=== PATIENT | female | born 1965 | race Caucasian/White ===

== ENCOUNTER → 2023-10-16 | Outpatient (CLI) | payer OTHER, SELFPAY ==
--- NOTE | 2023-10-16 07:35 | MRI_ITS ---
STUDY: MRI LEFT MIDFOOT REASON FOR EXAM: Female, 58 years old. METATARSALGIA TECHNIQUE: Standardized fat and water weighted pulse sequences were obtained in all 3 orthogonal planes. COMPARISON: Left foot radiographs dated 08/13/2023. FINDINGS: Normal talonavicular articulation. Normal calcaneocuboid articulation. Normal navicular-cuneiform articulations. Normal intercuneiform articulations. Normal first tarsometatarsal articulation. Normal Lisfranc ligament. Normal second and third tarsometatarsal articulations. Normal cuboid fourth and cuboid fifth tarsometatarsal articulation. There is mild marrow stress edema in the proximal fourth and fifth metatarsals. Normal first through third metatarsi. There is no demonstrated fracture of the metatarsal bones. Normal tibialis anterior tendon. Normal extensor hallucis longus tendon. Normal extensor digitorum longus tendons. Normal peroneus longus tendon and distal insertion. Normal peroneus brevis tendon and distal insertion. Normal intrinsic muscles of the mid and forefoot region. Normal extensor digitorum brevis muscle. Normal subcutis adipose space. There is no demonstrated soft tissue mass lesion. MRI/Lower Ext/No Jt/w/o IMPRESSION: Mild marrow stress edema in the proximal fourth and fifth metatarsals. No demonstrated fracture. Electronically Signed: Marko Simons MD at 9:34 EST ,
--- OUTSIDE RECORDS SUMMARY | 2023-10-16 07:47 | XMS RPT_ITS | CCD ---
Author Name Unknown Address [address] [place] [address] Organization [facility] Care Team Providers Care Line Fixer Name Role Phone Unavailable Primary Care Provider UnavailJesse Bahena Primary Care Provider [phone] Primary Care Unavailable JESSE GRIMES Attending Unavailable SELF, SELF Referring Unavailable Anthony Thomas MD, Robert Primary Care Provider Medications Current Medications Medication Drug Class(es) Dates Sig (Normalized) Sig (Original) acetaminophen 325 mg / HYDROcodone bitartrate 5 mg oral tablet (4 sources) Opioid Agonist Start: 09-17-2019 End: 09-24-2019 take 1-2 tablets by mouth every four hours as needed hydroCODone-aceta minophen 5-325 MG Tab tablet Indications: Post-op pain Take 1-2 tablets by mouth every 4 hours as needed for up to 7 days. 25 tablet 0 09/17/2019 Active Completed/Discontinued Medications Medication Drug Class(es) Dates Sig (Normalized) Sig (Original) 20 ml bupivacaine hydrochloride 5 mg/ml injection (1 source) Amide Local Anesthetic Start: 09-17-2019 End: 09-17-2019 bupivacaine (PF) (MARCAINE) 0.5 % injection 2 ml gentamicin 40 mg/ml injection (1 source) Start: 09-17-2019 End: 09-17-2019 gentamicin (GARAMYCIN) injection HERBAL PRODUCT (12 sources) End: 10-31-2022 take 2 capsules by mouth twice daily HERBAL PRODUCT Take 2 capsules by mouth 2 times daily. Alpha crs plus 0 10/31/2022 Discontinued Problems Problem Classification Problem Date Documented Date Episodic/Chronic Other connective tissue disease (2 sources) Trigger finger, right middle finger; Translations: [Trigger finger, right middle finger] Onset: 10-31-2022 Episodic Other connective tissue disease (1 source) Triggering of digit; Translations: [Trigger finger, right middle finger] Episodic Other nervous system disorders (1 source) Postoperative pain ; Translations: [Post-op pain] Episodic Other nervous system disorders (3 sources) Carpal tunnel syndrome of right wrist; Translations: [Carpal tunnel syndrome, right] Unclassified (1 source) Patient encounter status; Translations: [Encounter for screening mammogram for breast cancer] Results Test Name Value Interpretation Reference Range Facil ity Vital Signs Date Time Vital Sign Value Performing Clinician [facility] 10-31-2022 09:20-0400 Body height 162.6 cm Jesse Grimes MD Work Phone: [facility] 10-31-2022 09:20-0400 Body mass index (BMI) [Ratio] 37.01 kg/m2 Jesse Grimes MD Work Phone: [facility] 10-31-2022 09:20-0400 Body temperature 97.7 [degF] Jesse Grimes MD Work Phone: [facility] 10-31-2022 09:20-0400 Body weight 97.8 kg Jesse Grimes MD Work Phone: [facility] 10-01-2019 13:29-0500 BMI (Body Mass Index) 38.62 kg/m2 [facility] 10-01-2019 13:29-0500 Body Temperature 98.29 [degF] [facility] 10-01-2019 13:29-0500 Body weight 102.06 kg [facility] 10-01-2019 13:29-0500 Height 162.6 cm [facility] 09-17-2019 09:00-0500 BP Diastolic 81 mm[Hg] [facility] 09-17-2019 09:00-0500 BP Systolic 132 mm[Hg] [facility] 09-17-2019 09:00-0500 Pulse (Heart Rate) 83 /min [facility] 09-17-2019 09:00-0500 Pulse Oximetry 93 % [facility] 09-17-2019 09:00-0500 Respiratory Rate 18 /min [facility] 09-17-2019 08:32-0500 Body Temperature 97.7 [degF] [facility] 09-17-2019 07:00-0500 BMI (Body Mass Index) 38.62 kg/m2 [facility] 09-17-2019 07:00-0500 Body weight 102.06 kg [facility] 09-17-2019 07:00-0500 Height 162.6 cm [facility] 09-01-2019 10:15-0500 BMI (Body Mass Index) 38.64 kg/m2 [facility] 09-01-2019 10:15-0500 Body Temperature 98.49 [degF] [facility] 09-01-2019 10:15-0500 Body weight 102.1 kg [facility] 09-01-2019 10:15-0500 Height 162.6 cm [facility] 07-28-2019 09:47-0500 BMI (Body Mass Index) 38.62 kg/m2 [facility] 07-28-2019 09:47-0500 Body Temperature 97.7 [degF] [facility] 07-28-2019 09:47-0500 Body weight 102.06 kg [facility] 07-28-2019 09:47-0500 Height 162.6 cm [facility] Encounters Encounter Date Encounter Type Care Provider Facility Start: 10-31-2022 ambulatory JESSE ANTHONY [facility] Start: 10-31-2022 End: 10-31-2022 Office outpatient new 30 minutes Jesse Grimes MD Work Phone: [facility] Procedures Date Procedure Procedure Detail Performing Clinician Start: 10-31-2022 Injection 1 tendon sheath/ligament aponeurosis Jesse Grimes MD Work Phone: Start: 09-28-2019 Follow-up visit Start: 07-15-2019 [facility]: Plan of Treatment Date Care Activity Detail Author Start: 06-20-2023 Screening for malignant neoplasm of colon COLORECTAL CANCER SCREENING DISCUSSION [facility] Start: 01-02-2023 End: 01-02-2023 Patient encounter procedure 01/02/2023 Office Visit Orthopaedics Jesse Grimes MD [address] [facility] [place] [address] [facility] Start: 04-12-2022 Influenza vaccination INFLUENZA VACCINE (#1) [facility] Start: 01-13-2021 COVID-19 VACCINE (3 - Booster for Pfizer series) COVID-19 VACCINE (3 - Booster for Pfizer series) [facility] Start: 07-15-2020 Screening for malignant neoplasm of breast MAMMOGRAM SCREENING DISCUSSION [facility] Start: 07-15-2020 Screening mammography MAMMOGRAM SCREENING DISCUSSION [facility] Start: 10-01-2019 End: 10-01-2019 Office Visit 10/01/2019 Office Visit Orthopaedics Gerri Mcdaniels PA-C [address] [place] [address] [phone] [facility] Start: 09-17-2019 End: 09-17-2019 Procedure Pass [facility] Periop Immunizations Immunization Date Immunization Notes Care Provider [facility] 05-18-2021 influenza virus vaccine, unspecified formulation Jesse Grimes MD Work Phone: [facility] 10-25-2018 zoster vaccine, unspecified formulation Jesse Grimes MD Work Phone: [facility] Payers Date Payer Category Payer Unknown GENERIC PA[employer]OR [employer] xxxxxxxxxxx 2019-Present [id number] 2019 Unknown [id number] 2019 Unknown GENERIC PAYOR [employer] PLAN [id number] 2019-Present [phone] [address] [place] [address] [id number] 1965 Unknown [id number] Social History Date Type Detail [facility] Start: 1965 Sex Assigned At Not on file [employer] Start: 07-28-2019 End: 10-31-2022 Tobacco smoking status NHIS Never smoker [facility] Start: 09-08-2019 End: 10-31-2022 Alcohol intake Current drinker of alcohol (finding) [facility] Start: 10-31-2022 Tobacco use and exposure Smokeless tobacco non-user [facility] History of Present illness Narrative 10-31-2022 Sarahi Morgan LPN - 10/31/2022 9:15 AM EDTLjair Mcdaniels PA-C - 10/31/2022 9:15 AM EDT Note Date & Type Note Facility 10-31-2022 History of Present illness Narrative Subjective Chief Complaint Patient presents with Right Hand - Pain OPNP- R long trigger Review of Systems Constitutional: Negative for chills, fatigue and fever. Eyes: Negative for visual disturbance. Respiratory: Negative for shortness of breath. Cardiovascular: Negative for chest pain. Gastrointestinal: Negative for abdominal pain and blood in stool. Endocrine: Negative for polydipsia. Genitourinary: Negative for hematuria. Musculoskeletal: Positive for arthralgias. Negative for myalgias. Neurological: Negative for seizures. Hematological: Does not bruise/bleed easily. Psychiatric/Behavioral: Negative for dysphoric mood. Associated Order(s): UPPER EXTREMITY INJECTION: R long A1 Post-Procedure Diagnose(s): Trigger middle finger of right hand 10/31/22 Chief Complaint: Chief Complaint Patient presents with Right Hand - Pain OPNP- R long trigger HPI: Janki presents to the office today chief complaint of right long finger catching and locking for several months. She states it does not really lock at this point however she is not able get it to bend completely. She has tried natasha taping it. She has not had any other treatment. She is right-hand dominant. Past Medical History: Past Medical History: Diagnosis Date Arthritis GERD (gastroesophageal reflux disease) Hyperlipidemia ROGERIO (obstructive sleep apnea) Past Surgical History: Past Surgical History: Procedure Laterality Date DECOMPRESSION TRANSPOSITION MEDIAN NERVE Right 09/17/2019 Laterality: Right; Surgeon: Jesse Grimes MD; Location: [facility] RELEASE CARPAL TUNNEL Left 1985 SECTION 1985 ROS: Subjective Chief Complaint Patient presents with Right Hand - Pain OPNP- R long trigger Review of Systems Constitutional: Negative for chills, fatigue and fever. Eyes: Negative for visual disturbance. Respiratory: Negative for shortness of breath. Cardiovascular: Negative for chest pain. Gastrointestinal: Negative for abdominal pain and blood in stool. Endocrine: Negative for polydipsia. Genitourinary: Negative for hematuria. Musculoskeletal: Positive for arthralgias. Negative for myalgias. Neurological: Negative for seizures. Hematological: Does not bruise/bleed easily. Psychiatric/Behavioral: Negative for dysphoric mood. Physical Exam: Vitals: 10/31/22 0920 Temp: 97.7 degrees F (36.5 degrees C) TempSrc: Temporal Weight: 97.8 kg (215 lb 9.8 oz) Height: 1.626 m (5' 4 ) Awake, alert, and oriented x3 Extremity: on exam today she has tenderness over the A1 narcisa of the right long finger and active triggering of the finger in the office today. She is able make a composite fist. She has brisk cap refill and skin is warm and dry. Diagnostic Studies: none Assessment: right long trigger finger Plan: I have discussed the natural history and the treatment options with her. At this point she does desire steroid injection. Please see procedure note for further details. That was performed by Dr. Grimes. She can use ice, Tylenol anti-inflammatories as needed for pain. We will see her back in 2 months to see how she is progressing. If she is doing well she may call and cancel. Please note this dictation was done by myself, however the patient was discussed with and seen by Dr. Grimes who agrees with the above stated. UPPER EXTREMITY INJECTION: R long A1 Date/Time: 10/31/2022 9:15 AM Procedure Details: Procedure: tendon sheath / ligament injection Location: long finger - R long A1 Needle size: 25 G Approach: superolateral Medications administered: 40 mg methylPREDNISolone acetate 40 MG/ML Medication Verification: I have personally verified and performed the final check of the medication(s) used in this procedure prior to administration. The following items were included during the verification process for medication(s) administered: drug name, strength, volume, expiration, physical integrity and appearance of the medication(s). Patient tolerance: patient tolerated the procedure well with no immediate complications Comments Risk and Benefits were discussed with the patient and they wished to proceed. The procedure was performed aseptically and was tolerated by the patient. Preparation: Patient was prepped in the usual sterile fashion. The patient was prepped with alcohol. documented in this encounter [facility] Evaluation note Note Date & Type Note Facility documented in this encounter [facility] Summary Purpose Family History No Family History Records FoundNo Family History Records FoundNo Family History Records FoundNo Family History Records Found Advance Directives No Advanced Directives Records FoundNo Advanced Directives Records FoundNo Advanced Directives Records FoundNo Advanced Directives Records Found Reason for Referral Status Reason Specialty Diagnoses / Procedures Referred By Contact Referred To Contact Closed Mammography Diagnoses Encounter for screening mammogram for breast cancer Procedures MAMMO SCREENING WITH PATRICK BILATERAL Mammography-[facility] [id number] [facility] Mammography [address] [place] [address] Status Reason Specialty Diagnoses / Procedures Referred By Contact Referred To Contact New Request Physical Medicin e & Rehabilitation Diagnoses Carpal tunnel syndrome, right Jesse Grimes MD [address] [phone] Assessments Diagnosis Encounter for screening mammogram for breast cancer Diagnosis Carpal tunnel syndrome, right- Primary Carpal tunnel syndrome Diagnosis Carpal tunnel syndrome, right- Primary Carpal tunnel syndrome Diagnosis Post-op pain- Primary Other acute postoperative pain Diagnosis Carpal tunnel syndrome, right Carpal tunnel syndrome History of Present Illness * Jesse Grimes MD - 07/28/2019 9:15 AM EST 07/28/19 Chief Complaint Patient presents with Right Hand - Pain Hand Pain OPNP-numbness,tingling and pain x's 10yrs. HPI: Janki is here today in follow up of her right hand. She has numbness and tingling she has had for years, progressively worse now to the point where it bothers her daily. She is wearing a braceall the time. She works cleaning for a living. Past Medical History: Diagnosis Date Arthritis GERD (gastroesophageal reflux disease) Hyperlipidemia Past Surgical History: Procedure Laterality Date RELEASE CARPAL TUNNEL Left 1985 SECTION 1985 Current Outpatient Medications: atorvastatin 40 MG Tab tablet, atorvastatin 40 mg tablet, Disp: , Rfl: omeprazole [address] capsule, omeprazole 40 mg capsule,delayed release, Disp: , Rfl: No Known Allergies Social History Socioeconomic History Marital status: Spouse name: Not on file Number of children: Not on file Years of education: Not on file Highest education level: Not on file Occupational History Not on file Social Needs Financial resource strain: Not on file Food insecurity: Worry: Not on file Inability: Not on file Transportation needs: Medical: Not on file Non-medical: Not on file Tobacco Use Smoking status: Never Smoker Smokeless tobacco: Never Used Substance and Sexual Activity Alcohol use: Not on file Drug use: Not on file Sexual activity: Not on file Lifestyle Physical activity: Days per week: Not on file Minutes per session: Not on file Stress: Not on file Relationships Social connections: Talks on phone: Not on file Gets together: Not on file Attends christian service: Not on file Active member of club or organization: Not on file Attends meetings of clubs or organizations: Not on file Relationship status: Not on file Intimate partner violence: Fear of current or ex partner: Not on file Emotionally abused: Not on file Physically abused: Not on file Forced sexual activity: Not on file Other Topics Concern Not on file Social History Narrative Not on file Family History Problem Relation Age of Onset Myocardial Infarction Father Cancer- Other Sister Review of Systems Constitutional: Negative for chills, fatigue and fever. Eyes: Negative for visual disturbance. Respiratory: Negative for shortness of breath. Cardiovascular: Negative for chest pain. Gastrointestinal: Negative for abdominal pain and blood in stool. Endocrine: Negative for polydipsia. Genitourinary: Negative for hematuria. Musculoskeletal: Negative for arthralgias and myalgias. Neurological: Negative for seizures. Hematological: Does not bruise/bleed easily. Psychiatric/Behavioral: Negative for dysphoric mood. All other systems reviewed and are negative. Physical Examination: Vitals: 07/28/19 0947 Temp: 97.7 degrees F (36.5 degrees C) Weight: 102.1 kg (225 lb) Height: 1.626 m (5' 4 ) Extremity: Exam demonstrates positive Tinel's and Phalen's. 2-point discrimination is normal. No thenar atrophy. Skin is warm and dry. Assessment: 1. Clinically she has right carpal tunnel syndrome. Plan: We will set her up for a nerve study and see her back after that test is complete. We will goover the findings and discuss options at that point. * Nidhi Suazo - 07/28/2019 9:15 AM EST Review of Systems Constitutional: Negative for chills, fatigue and fever. Eyes: Negative for visual disturbance. Respiratory: Negative for shortness of breath. Cardiovascular: Negative for chest pain. Gastrointestinal: Negative for abdominal pain and blood in stool. Endocrine: Negative for polydipsia. Genitourinary: Negative for hematuria. Musculoskeletal: Negative for arthralgias and myalgias. Neurological: Negative for seizures. Hematological: Does not bruise/bleed easily. Psychiatric/Behavioral: Negative for dysphoric mood. All other systems reviewed and are negative. documented in this encounter* Nidhi Suazo - 09/01/2019 9:15 AM EST Review of Systems Constitutional: Negative for chills, fatigue and fever. Eyes: Negative for visual disturbance. Respiratory: Negative for shortness of breath. Cardiovascular: Negative for chest pain. Gastrointestinal: Negative for abdominal pain and blood in stool. Endocrine: Negative for polydipsia. Genitourinary: Negative for hematuria. Musculoskeletal: Positive for arthralgias. Negative for myalgias. Neurological: Negative for seizures. Hematological: Does not bruise/bleed easily. Psychiatric/Behavioral: Negative for dysphoric mood. documented in this encounter* Gerri Mcdaneils PA-C - 10/01/2019 1:30 PM EST 10/01/19 HPI: Janki Vasquez presents to the office today 2 weeks status post Right carpal tunnel release, doing well. She has not had complaints. Her numbness and tingling has resolved. PE: Right hand incision is clean and dry and healing well. She is able to make a composite fist. Brisk capillary refill. Skin is warm and dry. Two point Discrimination (mm): 1- Thumb 2- Index 3- Long 4- Ring 5- Small Right 7 7 7 7 7 Left N/a Assessment: S/P Right CTR. Plan: Sutures were removed in the office today. I discussed scar massage. There are no restrictions, she can progress activity as tolerated. Follow up on an as needed basis. * Christiane Landin - 10/01/2019 1:30 PM EST Review of Systems Constitutional: Negative for chills and fever. HENT: Negative for hearing loss. Eyes: Negative for visual disturbance. Respiratory: Negative for shortness of breath. Cardiovascular: Negative for chest pain. Gastrointestinal: Negative for abdominal pain and blood in stool. Endocrine: Negative for polydipsia. Genitourinary: Negative for hematuria. Musculoskeletal: Negative for arthralgias and myalgias. Neurological: Negative for dizziness, seizures and numbness. Hematological: Does not bruise/bleed easily. Psychiatric/Behavioral: Negative for dysphoric mood. documented in this encounter Discharge Instructions * Instructions* Justin Cameron RN - 09/17/2019 Janki Vasquez 09/17/2019 JESSE GRIMES M.D. HOME INSTRUCTIONS FOR OUTPATIENT HAND SURGERY: Following your surgery, you will have a dressing on your arm or hand. Depending on the type of surgery, it may be a soft gauze dressing, belinda bandage, cast or a combination of these. It is important to keep this dressing clean and dry, as it is meant to stay in place until you follow-up with the doctor or therapist. The surgeon may inform you or your family on the day of surgery if these instructions may be modified. In the setting of many small hand procedures, the wrap can be replaced with another type of bandage. If advised that it is ok, another wrap or even a waterproof band aide can be used over your incision. In all cases avoid getting the incision wet and observe it for any drainage that may appear. Your bandage should not be tight or rub you in a way that is problematic. Sometimes swelling can change this and cause a problem. If it should become tight or rub you in a way that is causing excessive discomfort in most situations loosening the wrap is the first step and can be done without concern. However, in the setting of a fracture or tendon repair please notify surgeon before unwrapping your surgical wound. Please do not apply neosporin or any other ointment on your incision until after the sutures have been removed. If you note a large amount of drainage, please contact your doctor. There will be some discomfort or pain at the operative site. This can be lessened by the use of an ice pack, elevating your hand above the level of your heart, and by the use of pain medication as needed. After the first 24 hours, you should use the operated hand to the extent your dressing will allow and make a fist 20 times an hour. This will help decrease swelling, especially in the fingers, and aid in lessening stiffness following surgery. Avoid lifting anything heavier than a gallon of milk with your surgical hand until you sutures are removed. This is most important if the surgical incision is on your palm. Lifting something too heavy could lead to the tearing out of your sutures and result wound complications. In addition, you may be instructed to begin a therapy program in the days following your surgery. If this is the case, you will be notified. If there are any questions or problems, please feel free to contact your physician by calling [phone] ([phone]). If it is after hours you can contact the fire loss prevention engineer doctor by calling [facility] at [phone]. Prescription refills will only be done during normal business hours. Please allow 48 hours for yourprescription to be refilled. There are certain restrictions that apply to the first 24 hours following surgery, especially afterhaving a generalor regional anesthetic: 1. Do not operate power equipment today (including cars, motorcycles, power saws, drills, etc.) 2. Do not sign any legal documents today. 3. Advance diet slowly, starting with liquids. No alcoholic beverages for at least 24 hours (longer if you are taking prescription pain medication). 4. You should be accompanied by an adult for the next 24 hours. If you do not have a post-operative appointment scheduled with your doctor please call the office on the next business day for an appointment at [phone]) documented in this encounter Additional Source Comments INFORMATION SOURCE (unrecogn ized section and content) DATE CREATED AUTHOR AUTHOR'S ORGANIZ ATION 09/28/2019 [facility] DATE CREATED AUTHOR AUTHOR'S ORGANIZ ATION 10/12/2019 [facility] DATE CREATED AUTHOR AUTHOR'S ORGANIZ ATION 10/31/2022 [facility] Reason for Visit (unrecogniz ed section and content) Reason Comments Hand Pain OPNP-numbness,tingli ng and pain x's 10yrs. Pain Reason Comments Follow-up EMG results Rt. hand Follow-up Status Reason Specialty Diagnoses / Procedures Referre d By Contact Referred To Contact Diagnoses Carpal tunnel syndrome on right Carpal tunnel syndrome on right [G56.01] Procedures AR REVISE MEDIAN N/CARPAL TUNNEL SURG DECOMPRESSION TRANSPOSITION MEDIAN NERVE Reason Comments Follow-up S/P right CTR - OR 0 09/17/2019 (14 days) Reason Comments Pain OPNP- R long trigger Care Teams (unrecognized sec tion and content) FOR RECORDS PERTAINING TO PATIENTS WHO ARE OR HAVE BEEN ENROLLED IN A CHEMICAL DEPENDENCY/SUBSTANCEABUSE PROGRAM, SOME INFORMATION MAY BE OMITTED. This clinical summary was aggregated from multiple sources. Caution should be exercised in using it in the provision of clinical care. This summary normalizes information from multiple sources, and as a consequence, information in this document may materially change the coding, format and clinical context of patient data. In addition, data may be omitted in some cases. CLINICAL DECISIONS SHOULD BE BASED ON THE PRIMARY CLINICAL RECORDS. [employer] provides no warranty or guarantee of the accuracy or completeness of information in this document.
== END | disposition home or self-care (01) ==
PROVIDERS: PCP Internal Medicine; Referring Provider Podiatrist; Visit Provider Podiatrist
DX: M77.42 Metatarsalgia, left foot (principal)
CPT/HCPCS: 73718